=== PATIENT | female | born 1980 | race Caucasian/White ===

== ENCOUNTER 2025-05-11 22:29 | Emergency (ER) | payer MEDICAID ==
[~2025-05-11] VITALS: Ht 167.6 cm; Wt 86.1 kg
[2025-05-11 22:51] VITALS: O2SAT 98
[2025-05-11 22:56] VITALS: TEMP 36.9; O2SAT 99
[2025-05-11] MEDS ORDERED: DEXAMETHASONE 10 MG/ML VIAL IV ONE (23:45)
[2025-05-11] MEDS ORDERED: KETOROLAC 30MG/ML VIAL IV ONE (23:45)
[2025-05-11] MEDS ORDERED: AMPICILLIN SOD/SULBACTAM NA 3 G in SODIUM CHLORIDE 0.9% 100 ML IV ONE (23:45)
[2025-05-12] MEDS ORDERED: DEXA6TAB MT (00:09)
[2025-05-12] MEDS ORDERED: IBUP-2030 MT (00:09)
[2025-05-12] MEDS ORDERED: AMOX1TAB16 MT (00:09)
[2025-05-12 00:11] VITALS: BP 138/88; PULSE 85; RESP 20
[2025-05-12] MEDS: CEFTRIAXONE SODIUM 1G VIAL IM ONE (00:11)
[2025-05-12] MEDS: KETOROLAC 30MG/ML VIAL IM NR (00:11)
[2025-05-12] MEDS: DEXAMETHASONE 10 MG/ML VIAL IM NR (00:11)
[2025-05-12] MEDS: AMOXICILLIN/POTASSIUM CLAVULANATE 875/125MG TAB PO ONE (00:23)
== END 2025-05-12 00:25 | disposition home or self-care (01) ==
LOC: ER 22:29
DX: K04.7 Periapical abscess without sinus (principal); Z79.899 Other long term (current) drug therapy
CPT/HCPCS: 99284; 96372; J1885; J0696; J1100; J0295; J7050